=== PATIENT | female | born 1990 | race Caucasian/White ===

== ENCOUNTER 2017-02-03 00:03 | Inpatient (IN) ==
[2017-02-03] MEDS ORDERED: KEFZOL 1 GM/D5W 1 GM/50 ML IVPB IV PRN (00:06)
[2017-02-03] MEDS ORDERED: PEPCID PO PRN (00:06)
[2017-02-03] MEDS ORDERED: PITOCIN 30 UNITS/LR 30 UNITS/500 ML IV.SOLN IV SCH (00:06)
[2017-02-03] MEDS ORDERED: STADOL IV PRN (00:06)
[2017-02-03] MEDS ORDERED: PEPCID IV PRN (00:06)
[2017-02-03] MEDS ORDERED: ZOFRAN IV PRN (00:06)
[2017-02-03] MEDS ORDERED: TYLENOL PO PRN (00:06)
[2017-02-03] MEDS ORDERED: SODIUM CHLORIDE 0.9% INJ SCH (00:15)
[2017-02-03] MEDS: LR 1,000 ML IV SCH ×2 (01:01→09:08)
[2017-02-03 01:07] LABS: MANUAL DIFF NEEDED? NO
[2017-02-03 01:10] LABS: BASO% 0.3 % (0.0-0.8); EOS# 0.08 X1000 (0.0-0.7); EOS% 0.8 % (0.0-10.0); HEMATOCRIT 37.2 % (37.0-47.0); HEMOGLOBIN 12.5 g/dL (12.0-16.0); IMM GRAN# 0.11 X1000 (0.0-0.04); IMM GRAN% 1.1 % (0.0-0.5); LYMPH# 3.05 X1000 (1.2-3.4); LYMPH% 31.4 % (20.5-51.1); MCH 29.4 PG (27-31); MCHC 33.6 g/dL (33-37); MCV 87.5 FL (81-99); MONO% 8.2 % (1.7-9.3); MPV 10.6 FL (7.4-10.4); NEUT% 58.2 % (42.2-75.2); PLT 144 X1000 (130-400); RBC 4.25 XMIL (4.2-5.4)
[2017-02-03] MEDS ORDERED: FENTANYL-BUPIV-NS 2 MCG-0.1% 200 ML EPIDURAL SCH (02:00)
[2017-02-03] MEDS ORDERED: XYLOCAINE-MPF 1% ONE (07:56)
[2017-02-03] MEDS ORDERED: MINERAL OIL ONE (07:57)
[2017-02-03] MEDS ORDERED: XYLOCAINE-MPF 1% INJ ONE (08:45)
[2017-02-03] MEDS ORDERED: SENSORCAINE-MPF 0.5%/EPI 1:200,000 ONE (10:37)
[2017-02-03] MEDS ORDERED: MARCAINE 0.5% PF INJ ONE (10:41)
[2017-02-03] MEDS ORDERED: SENSORCAINE-MPF 0.5%/EPI 1:200,000 INJ ONE (10:47)
[2017-02-03] MEDS ORDERED: PITOCIN 30 UNITS/LR 30 UNITS/500 ML IV.SOLN IV ONE (12:45)
[2017-02-03] MEDS ORDERED: NORCO-10 PO PRN (12:45)
[2017-02-03] MEDS ORDERED: PITOCIN 20 UNITS/LR 20 UNITS/1,000 ML IV.SOLN IV SCH (12:45)
[2017-02-03] MEDS ORDERED: NORCO-5 PO PRN (12:45)
[2017-02-03] MEDS ORDERED: M-M-R II VACCINE SUBQ ONE (12:45)
[2017-02-03] MEDS ORDERED: BOOSTRIX VACCINE IM ONE (12:45)
[2017-02-03] MEDS ORDERED: XYLOCAINE-MPF 1% INJ PRN (12:45)
[2017-02-03] MEDS ORDERED: PITOCIN IM PRN (12:45)
[2017-02-03] MEDS ORDERED: BENADRYL IV PRN (12:45)
[2017-02-03] MEDS ORDERED: AMBIEN PO PRN (12:45)
[2017-02-03] MEDS ORDERED: HYDROXYZINE IM PRN (12:45)
[2017-02-03] MEDS ORDERED: BENADRYL PO PRN (12:45)
[2017-02-03] MEDS ORDERED: HYDROXYZINE PO PRN (12:45)
[2017-02-03] MEDS ORDERED: MINERAL OIL PO PRN (12:45)
[2017-02-03] MEDS ORDERED: CYTOTEC PO PRN (12:45)
[2017-02-03] MEDS: PERI MEDS (DERMOPLAST/NUPERCAINAL/TUCKS) MISC PRN (13:20)
--- NOTE | 2017-02-03 17:15 | OPERATIVE NOTE ---
PROCEDURE DATE: 02/03/2017 DELIVERY NOTE: The patient underwent sterile controlled spontaneous vaginal delivery of a viable female , weighing 7 pounds 5 ounces with Apgars of 9 and 10. Loose nuchal x1, reduced at perineum, no dystocia. Cord doubly clamped and cut. The infant handed off. Placenta delivered spontaneously and intact. Uterus firm with Pitocin and massage. Uterus, cervix, and vagina explored. A first-degree posterior midline laceration repaired with 3-0 chromic in the usual fashion and a clitoral tear also repaired with 3-0 chromic in the usual fashion both hemostatic. No complications. ESTIMATED BLOOD LOSS: 250 mL. cc: Alaina Sheffield MD
[2017-02-03] MEDS: MOTRIN PO PRN (18:21)
[2017-02-03] MEDS ORDERED: PERICOLACE PO SCH (21:00)
[2017-02-04] MEDS: MOTRIN PO PRN ×3 (03:13→20:16)
[2017-02-04 05:58] LABS: HEMATOCRIT 36.3 % (37.0-47.0); HEMOGLOBIN 11.9 g/dL (12.0-16.0); MCH 29.1 PG (27-31); MCHC 32.8 g/dL (33-37); MCV 88.8 FL (81-99); RBC 4.09 XMIL (4.2-5.4)
[2017-02-05] MEDS: MOTRIN PO PRN (04:16)
[2017-02-05] MEDS: PERI MEDS (DERMOPLAST/NUPERCAINAL/TUCKS) MISC PRN (07:46)
[2017-02-05 07:52] VITALS: BP 114/70
== END 2017-02-05 12:35 | disposition home or self-care (01) ==
LOC: P.LD 00:03
PROVIDERS: ADMIT Obstetrics & Gynecology; ATTEND Obstetrics & Gynecology